=== PATIENT | female | born 1970 | race African-American/Black ===

== ENCOUNTER 2017-06-12 18:27 | Emergency (ER) | payer MEDICAID ==
[~2017-06-12] VITALS: Ht 157.5 cm; Wt 78.0 kg
[2017-06-12] MEDS ORDERED: IBUPROFEN 600MG TABLET PO ONE (23:00)
[2017-06-12] MEDS ORDERED: AMOXICILLIN/POTASSIUM CLAVULANATE 875/125MG TAB PO ONE (23:00)
[2017-06-12 23:24] VITALS: BP 162/102
== END 2017-06-12 23:31 | disposition home or self-care (01) ==
LOC: ER 19:12
DX: S71.151A Open bite, right thigh, initial encounter (principal); W54.0XXA Bitten by dog, initial encounter; E11.9 Type 2 diabetes mellitus without complications; E78.00 Pure hypercholesterolemia, unspecified; I10 Essential (primary) hypertension; Z79.4 Long term (current) use of insulin
CPT/HCPCS: 81025; 99283

== ENCOUNTER 2017-12-22 19:15 | Emergency (ER) | payer SELFPAY ==
[~2017-12-22] VITALS: Ht 157.5 cm; Wt 73.0 kg
[2017-12-22 22:59] LABS: BASOPHILS % 0.5 % (0.0-2.0); EOSINOPHILS % 0.6 % (0.0-5.0); HEMATOCRIT. 33.7 % (36.0-48.0); HEMOGLOBIN. 11.6 g/dL (12.0-16.0); LYMPHOCYTES % 23.8 % (20.0-50.0); MEAN CORPUSCULAR HEMOGLOBIN 28.7 pg (28.0-32.0); MEAN CORPUSCULAR VOLUME 83.4 fL (81.0-99.0); MEAN PLATELET VOLUME 7.1 fl (7.4-10.4); NEUTROPHILS % 65.1 % (40.0-76.0); PLATELET 462 x1000/uL (130-400); RED BLOOD CELL COUNT 4.04 mill/uL (4.2-5.4); RED CELL DISTRIBUTION WIDTH 15.6 % (11.6-14.6)
[2017-12-22 23:06] LABS: CHLORIDE 101 mEq/L (98-107)
[2017-12-22 23:28] VITALS: BP 150/93
== END 2017-12-22 23:31 | disposition home or self-care (01) ==
LOC: ER 20:35
DX: E11.649 Type 2 diabetes mellitus with hypoglycemia without coma (principal); I10 Essential (primary) hypertension; Z79.4 Long term (current) use of insulin
CPT/HCPCS: 36415; 80053; 85025; 99284